=== PATIENT | female | born 1945 | race Caucasian/White ===

== ENCOUNTER 2016-12-14 09:49 | Inpatient (IN) | payer BC, OTHER ==
[~2016-12-14] VITALS: Ht 152.4 cm; Wt 61.3 kg
[2016-12-14] MEDS ORDERED: ONDANSETRON INJ 2 MG/ML 2 ML VIAL IV STA (10:19)
[2016-12-14] MEDS ORDERED: SODIUM CHLORIDE 0.9% 1000ML 1,000 ML IV SCH (10:19)
[2016-12-14 10:31] LABS: BASO % 1.8 %; COMPLETE YES; EOS % 2.7 %; IG% 0.2 %; LYMPH % 44.4 %; LYMPH ABS # 2.47 K/uL (1.2-3.4); MEAN CELL VOLUME 90.4 fL (80-100); MEAN CORPUSCULAR HEMOGLOBIN 31.5 pg (25-34); MEAN CORPUSCULAR HGB CONC 34.9 g/dl (32-36); MEAN PLATELET VOLUME 11.8 fL (7.4-10.4); MONO % 6.5 %; NEUT % 44.4 %; PLATELET COUNT 254 K/uL (130-400); RED BLOOD COUNT 4.98 M/uL (4.2-5.4); WHITE BLOOD COUNT 5.56 K/uL (4.8-10.8)
--- NOTE | 2016-12-14 10:42 | DIAGNOSTIC IMAGING REPORT ---
HEAD CT NONCONTRAST CT DOSE: 823.94 mGycm HISTORY: Mental status change Stroke TECHNIQUE: Multiaxial CT images of the head were performed without the use of intravenous contrast. Comparison: None. Findings: The paranasal sinuses and mastoid air cells are clear. There is suggestion of a slight increase in density left internal artery canals compared to the right. Artifact versus space-occupying lesion within the left internal artery canals considered. Density characteristics of the cerebellar as well as cerebral hemispheres are unremarkable. There is minimal age-related chronic small vessel change. There is no evidence for acute intracranial hemorrhage. Ventricular system is midline. Impression: 1. No acute intracranial abnormality. 2. Mild chronic small vessel change. 3. Increased density of the left internal auditory canal. MRI of the brain with attention to the internal auditory canals suggested as follow-up. Electronically signed by: Jimenez Cartwright M.D. 12/14/2016 10:41 AM Dictated Date/Time: 12/14/2016 10:37 AM
[2016-12-14 10:46] LABS: INR 0.9 (0.9-1.1); PARTIAL THROMBOPLASTIN RATIO 0.9
[2016-12-14] MEDS ORDERED: INDA1TAB3 PO (10:46)
[2016-12-14] MEDS ORDERED: CHOL1000 PO (10:46)
[2016-12-14] MEDS ORDERED: CYAN10005 PO (10:46)
[2016-12-14 10:56] LABS: BLOOD UREA NITROGEN 17 mg/dl (7-18); CREATININE 0.81 mg/dl (0.60-1.20); GLUCOSE 123 mg/dl (70-99)
[2016-12-14 10:57] LABS: BUN/CREATININE RATIO 20.5 (10-20); CALCIUM 9.9 mg/dl (8.5-10.1); CARBON DIOXIDE 31 mmol/L (21-32); CHLORIDE 105 mmol/L (98-107); POTASSIUM 3.3 mmol/L (3.5-5.1); SODIUM 141 mmol/L (136-145)
[2016-12-14 11:05] LABS: CKMB/CK RATIO 1.2 (0-3.0)
--- NOTE | 2016-12-14 11:11 | DIAGNOSTIC IMAGING REPORT ---
SINGLE VIEW CHEST CLINICAL HISTORY: Strokelike symptoms. FINDINGS: An AP, portable, upright chest radiograph is obtained. No prior studies are available for comparison at the time of dictation. The examination is degraded by portable technique and patient rotation. The heart is mildly enlarged. The pulmonary vasculature is noncongested. Nonspecific interstitial thickening is noted. There is no airspace consolidation or large pleural effusion. No pneumothorax is seen. The skeletal structures are osteopenic. The bony thorax is grossly intact. IMPRESSION: Mild cardiac enlargement with no acute cardiopulmonary abnormality. Electronically signed by: Wilian Arnett M.D. 12/14/2016 11:10 AM Dictated Date/Time: 12/14/2016 11:09 AM
[2016-12-14] MEDS ORDERED: MAGNESIUM HYDROXIDE SUSP 30 ML UDC PO PRN (11:30)
[2016-12-14] MEDS ORDERED: ALUMINUM/MAGNESIUM/SIMETH (MAALOX MAX) 30 ML UDC PO PRN (11:30)
[2016-12-14] MEDS ORDERED: ONDANSETRON INJ 2 MG/ML 2 ML VIAL IV PRN (11:30)
[2016-12-14] MEDS ORDERED: POLYETHYLENE (MIRALAX) 17 GM PACK PO PRN (11:30)
[2016-12-14] MEDS ORDERED: ACETAMINOPHEN 325 MG TAB PO PRN (11:30)
[2016-12-14] MEDS ORDERED: PHARMACIST DISCHARGE MED REC CONSULT PRN (11:30)
[2016-12-14 12:11] LABS: ESTIMATED AVERAGE GLUCOSE 108 mg/dl; HA1C FLAG Normal (Normal)
[2016-12-14 12:25] VITALS: O2SAT 100; Ht 152.4 cm; Wt 61.3 kg
[2016-12-14] MEDS ORDERED: IV FLUIDS COMPLETED PRN (12:30)
[2016-12-14 13:15] VITALS: BP 160/85; PULSE 60; TEMP 36.8; O2SAT 98
[2016-12-14] MEDS ORDERED: POTASSIUM CITRATE 10 MEQ TAB PO ONE (14:30)
--- NOTE | 2016-12-14 16:10 | DIAGNOSTIC IMAGING REPORT ---
NECK MRA HISTORY: Mental status change eval for cva TECHNIQUE: [id number] and gadolinium-enhanced MRA of the neck was performed both before and after the intravenous administration of contrast. All measurements were calculated based on NASCET criteria. COMPARISON STUDY: None. FINDINGS: The aortic arch and proximal great vessels are widely patent. There is no significant stenosis, occlusion, or dissection identified within the bilateral common carotid, internal carotid, or vertebral arteries. Mild plaque dimension is identified at the carotid bifurcations as well as distal aspects of the vertebral arteries. A significant stenotic process, however is not appreciated. IMPRESSION: No significant stenosis, occlusion, or dissection identified within the carotid or vertebral arteries. Mild scattered plaque formation. Electronically signed by: Jimenez Cartwright M.D. 12/14/2016 4:08 PM Dictated Date/Time: 12/14/2016 4:07 PM
--- NOTE | 2016-12-14 16:11 | DIAGNOSTIC IMAGING REPORT ---
Brain MRA HISTORY: Vision loss. Stroke. TECHNIQUE: 3-D [id number] MRA of the brain was performed without contrast. COMPARISON STUDY: None. FINDINGS: Visualized intracranial internal carotid arteries, distal vertebral arteries, and basilar artery are widely patent. There is no significant stenosis, occlusion, or aneurysm seen within the bilateral ACAs, MCAs, or audio visual equipment rental clerk. Hypoplastic right P1 segment. There is persistent left posterior circulation considered to be a normal variant. IMPRESSION: No significant stenosis, occlusion, or aneurysm within the [place]. Electronically signed by: Tello Gordon M.D. 12/14/2016 4:09 PM Dictated Date/Time: 12/14/2016 4:06 PM
[2016-12-14] MEDS ORDERED: GADAVIST IV PRN (16:15)
--- NOTE | 2016-12-14 16:15 | DIAGNOSTIC IMAGING REPORT ---
MRI OF THE BRAIN AND IACS WITHOUT AND WITH IV CONTRAST CLINICAL HISTORY: Visual loss, 3rd nerve palsy. Stroke symptoms. COMPARISON STUDY: CT scan dated 12/14/2016 TECHNIQUE: MRI of the brain was performed from the vertex to the skull base utilizing various T1 and T2 weighted sequences. Following the IV administration of 6 mL of Gadavist contrast, additional enhanced images were obtained. FINDINGS: Sagittal T1, axial diffusion, proton density and T2 weighted axial, coronal FLAIR, and pre and post axial T1-weighted images were acquired. These were supplemented with post gadolinium coronal T1 weighted images. No intra or extra-axial mass lesions are visualized. Axial diffusion-weighted images reveal no evidence of acute or subacute infarction. A subtle linear focus of increased signal within the right medial posterior pontine midbrain junction is likely artifactual. There is no evidence of ventricular dilatation. Proton density T2-weighted and FLAIR images reveal scattered foci of increased T2 signal within the white matter, likely on a small vessel basis. There are no abnormal flow voids. There is no evidence of pathologic enhancement. IMPRESSION: 1. No acute intracranial findings 2. No evidence of acute or subacute infarction (a subtle linear focus of increased signal on diffusion-weighted images in the right medial posterior pontine midbrain junction is likely artifactual) 3. No evidence of intracranial mass. Specifically no cerebellopontine angle masses are visualized. The 7th and 8th nerve complexes appear normal. Electronically signed by: Houston Eid M.D. 12/14/2016 4:13 PM Dictated Date/Time: 12/14/2016 4:09 PM
--- NOTE | 2016-12-14 16:40 | EMERGENCY ROOM VISIT NOTE ---
History Report prepared by Mumtazibstephanie: Dana Nguyen Under the Supervision of: Dr. Phil Chamorro M.D. First contact with patient: 10:10 Chief Complaint: EYE ASSESSMENT Stated Complaint: VISION LOSS History of Present Illness The patient is a 71 year old female who presents to the Emergency Room with complaints of persistent double vision that began around 8AM this morning. She states that her symptoms began when she woke up. She has some improvement when she covers one eye or closes her eyes. It is worse when she has both eyes open. She does not have any loss of vision. She cannot distinguish whether the two images are on top of each other or side by side. She also complains of some dizziness, nausea, and vomiting. She has been able to walk this morning, but needs something to hold onto while walking. She did not have any symptoms when she went to bed last night. She has had 4-5 episodes of benign vertigo in the past, most recently about a year ago. Her current symptoms do not feel similar to previous episodes of vertigo as she does not typically have double vision. Denies fever, headache, chest pain, shortness of breath, abdominal pain, diarrhea, trouble speaking or communicating, trouble swallowing, or other complaints. She does not have a history of diabetes, stroke, or mini-stroke. She is not on aspirin. Past medical history includes hypertension. Source of History: patient Onset: 8AM this morning Position: other (vision) Quality: other (double vision) Timing: other (persistent) Modifying Factors (Worsening): other (opening both eyes) Modifying Factors (Relieving): other (closing one or both eyes) Associated Symptoms: + nausea, + vomiting, No SOB, No abdominal pain, No chest pain, No diarrhea, No fevers, No headache Note: Other symptoms: dizziness Review of Systems See HPI for pertinent positives & negatives. A total of 10 systems reviewed and were otherwise negative. Past Medical & Surgical Medical Problems: (1) Diplopia (2) Hypertension (3) Vertigo Family History No pertinent family history stated. Social History Smoking Status: Never Smoker Marital Status: Housing Status: lives with significant other Occupation Status: retired Current/Historical Medications Scheduled Cholecalciferol (Vitamin D3), 1 TAB PO DAILY Cyanocobalamin (Vitamin B-12), 1,000 MCG PO 3XWK Indapamide (Lozol), 1.25 MG PO DAILY Allergies Coded Allergies: No Known Allergies (Unverified , 12/14/16) Physical Exam Vital Signs Date Time Temp Pulse Resp B/P Pulse Ox O2 Delivery O2 Flow Rate FiO2 12/14/16 12:25 100 Room Air 12/14/16 11:47 64 19 148/76 100 Room Air 12/14/16 11:11 52 12 147/76 98 Room Air 12/14/16 11:10 100 Room Air 12/14/16 10:45 58 17 159/84 98 Room Air 12/14/16 10:42 60 12/14/16 09:58 36.5 58 18 179/95 98 Room Air Physical Exam Constitutional: Vital signs reviewed. Eyes: Pupils are equal round reactive to light. Conjunctiva are noninjected. ENT: Pharynx is clear without erythema or exudate. Mucous membranes are moist. Neck supple without meningeal signs. Respiratory: Clear to auscultation bilaterally. Breath sounds are equal bilaterally. Cardiovascular: Regular rate and rhythm. No rubs or gallops. GI: Soft, nondistended and nontender. Bowel sounds are present. Musculoskeletal: No peripheral edema. No lower extremity tenderness. Integumentary: No cyanosis. Neurological: The patient is awake and alert. Cranial nerves II-XII are intact except for the right third nerve. Motor is 5 out of 5 all extremities. Sensation is intact to light touch all extremities. Normal speech. No pronator drift. No dysdiadochokinesis. No limb ataxia. Psychiatric: Slightly anxious. Medical Decision & Procedures ER Provider Diagnostic Interpretation: Radiology results as stated below per my review and the radiologist's interpretation: HEAD CT NONCONTRAST CT DOSE: 823.94 mGycm HISTORY: Mental status change Stroke TECHNIQUE: Multiaxial CT images of the head were performed without the use of intravenous contrast. Comparison: None. Findings: The paranasal sinuses and mastoid air cells are clear. There is suggestion of a slight increase in density left internal artery canals compared to the right. Artifact versus space-occupying lesion within the left internal artery canals considered. Density characteristics of the cerebellar as well as cerebral hemispheres are unremarkable. There is minimal age-related chronic small vessel change. There is no evidence for acute intracranial hemorrhage. Ventricular system is midline. Impression: 1. No acute intracranial abnormality. 2. Mild chronic small vessel change. 3. Increased density of the left internal auditory canal. MRI of the brain with attention to the internal auditory canals suggested as follow-up. Electronically signed by: Jimenez Cartwright M.D. 12/14/2016 10:41 AM Dictated Date/Time: 12/14/2016 10:37 AM SINGLE VIEW CHEST CLINICAL HISTORY: Strokelike symptoms. FINDINGS: An AP, portable, upright chest radiograph is obtained. No prior studies are available for comparison at the time of dictation. The examination is degraded by portable technique and patient rotation. The heart is mildly enlarged. The pulmonary vasculature is noncongested. Nonspecific interstitial thickening is noted. There is no airspace consolidation or large pleural effusion. No pneumothorax is seen. The skeletal structures are osteopenic. The bony thorax is grossly intact. IMPRESSION: Mild cardiac enlargement with no acute cardiopulmonary abnormality. Electronically signed by: Wilian Arnett M.D. 12/14/2016 11:10 AM Dictated Date/Time: 12/14/2016 11:09 AM Laboratory Results 12/14/16 10:10 Red Blood Count 4.98, Mean Corpuscular Volume 90.4, Mean Corpuscular Hemoglobin 31.5, Mean Corpuscular Hemoglobin Concent 34.9, Mean Platelet Volume 11.8, Neutrophils (%) (Auto) 44.4, Lymphocytes (%) (Auto) 44.4, Monocytes (%) (Auto) 6.5, Eosinophils (%) (Auto) 2.7, Basophils (%) (Auto) 1.8, Neutrophils # (Auto) 2.47, Lymphocytes # (Auto) 2.47, Monocytes # (Auto) 0.36, Eosinophils # (Auto) 0.15, Basophils # (Auto) 0.10 12/14/16 10:10 Test 12/14/16 10:10 White Blood Count 5.56 K/uL (4.8-10.8) Red Blood Count 4.98 M/uL (4.2-5.4) Hemoglobin 15.7 g/dL (12.0-16.0) Hematocrit 45.0 % (37-47) Mean Corpuscular Volume 90.4 fL (80-100) Mean Corpuscular Hemoglobin 31.5 pg (25-34) Mean Corpuscular Hemoglobin Concent 34.9 g/dl (32-36) Platelet Count 254 K/uL (130-400) Mean Platelet Volume 11.8 fL (7.4-10.4) Neutrophils (%) (Auto) 44.4 % Lymphocytes (%) (Auto) 44.4 % Monocytes (%) (Auto) 6.5 % Eosinophils (%) (Auto) 2.7 % Basophils (%) (Auto) 1.8 % Neutrophils # (Auto) 2.47 K/uL (1.4-6.5) Lymphocytes # (Auto) 2.47 K/uL (1.2-3.4) Monocytes # (Auto) 0.36 K/uL (0.11-0.59) Eosinophils # (Auto) 0.15 K/uL (0-0.5) Basophils # (Auto) 0.10 K/uL (0-0.2) RDW Standard Deviation 43.6 fL (36.4-46.3) RDW Coefficient of Variation 13.2 % (11.5-14.5) Immature Granulocyte % (Auto) 0.2 % Immature Granulocyte # (Auto) 0.01 K/uL (0.00-0.02) Prothrombin Time 10.0 SECONDS (9.0-12.0) Prothromb Time International Ratio 0.9 (0.9-1.1) Activated Partial Thromboplast Time 23.9 SECONDS (21.0-31.0) Partial Thromboplastin Ratio 0.9 Anion Gap 5.0 mmol/L (3-11) Est Creatinine Clear Calc Drug Dose 51.9 ml/min Estimated GFR () 84.1 Estimated GFR (Non- 72.6 BUN/Creatinine Ratio 20.5 (10-20) Estimated Average Glucose 108 mg/dl Hemoglobin A1c 5.4 % (4.5-5.6) Calcium Level 9.9 mg/dl (8.5-10.1) Total Creatine Kinase 50 U/L (26-192) Creatine Kinase MB 0.6 ng/ml (0.5-3.6) Creatine Kinase MB Ratio 1.2 (0-3.0) Troponin I < 0.015 ng/ml (0-0.045) Laboratory results as reviewed by me. Medications Administered Medications (Trade) Dose Ordered Sig/Ayla Route Start Time Stop Time Status Last Admin Dose Admin Sodium Chloride (Nss 1000ml) 1,000 ml @ 50 mls/hr Q20H IV 12/14/16 10:19 12/14/16 13:40 DC 12/14/16 11:04 50 MLS/HR Ondansetron HCl (Zofran Inj) 4 mg NOW STAT IV 12/14/16 10:19 12/14/16 10:21 DC 12/14/16 11:04 4 MG ECG Indication: other (stroke symptoms) Rate (beats per minute): 58 Rhythm: sinus bradycardia Findings: no ectopy, other (baseline artifact limiting interpretation, no ST elevation) ED Course 1010: The patient was evaluated in room A3. A complete history and physical exam was performed. 1019: Ordered Zofran Inj 4 mg IV, NSS 1000 ml @ 50 mls/hr IV. 1109: I reassessed the patient. She said that she feels fine as long as she does not open her eyes. 1114: I discussed the case with Dr. Villarreal, [facility] [place] Hospitalist. The patient will be evaluated for further management. Medical Decision This is a 71-year-old female presents with double vision. Differential diagnosis includes CVA, TIA, intracranial mass, intracranial hemorrhage, cranial nerve palsy. I did perform a limited focused review of portions of the patient's old chart on the electronic medical record. The patient has had no recent pertinent visits to this hospital. I did evaluate the patient as noted above. She is presenting with diplopia starting this morning. She has a 3rd nerve palsy on the right side. She is only able to abduct the right eye. She otherwise has no other cranial nerve deficits or focal deficits in the extremities. IV access was established. The patient was placed on a continuous cardiac exercise physiologist. I did order and personally review the patient's 12-lead EKG and chest x-ray as described above. I did order and review the patient's blood work as noted in the electronic medical record. I did order a CT of the head. I did review the images myself as well as the radiology report as described above. There is no evidence of acute stroke. I did treat the patient with Zofran IV. I did reassess the patient. She continues to have a third nerve palsy. I did recommend hospitalization for further evaluation as well as MRI and MRA of the head and neck. I did order the MRI and MRAs. I did discuss the case with the hospitalist and outpatient case manager for further evaluation. Consults Time Called: [phone] Consulting Physician: Dr. Villarreal [facility] [place] Hospitalist Returned Call: [phone] I discussed the case with him. The patient will be evaluated for further management. Impression Primary Impression: Third cranial nerve palsy Scribe Attestation The scribe's documentation has been prepared under my direct and personally reviewed by me in its entirety. I confirm that the note above accurately reflects all work, treatment, procedures, and medical decision making performed by me. Departure Information Dispostion Being Evaluated By Hospitalist Referrals Parvez Lopes M.D. (PCP) Patient Instructions My [facility] Problem Qualifiers Primary Impression: Third cranial nerve palsy Laterality: unspecified laterality Qualified Codes: H49.00 - Third [ oculomotor] nerve palsy, unspecified eye
[2016-12-14 17:28] VITALS: BP 175/96; PULSE 58; TEMP 36.6; O2SAT 100
--- NOTE | 2016-12-14 17:59 | History and Physical ---
History & Physical Date & Time of Service: Dec 14, 2016 at 17:41 Chief Complaint: Diplopia Primary Care Physician: Parvez Lopes M.D. History of Present Illness Source: patient This is a 71 yo f that is presenting to us with changes suspicious of a TIA. The patient awoke this morning at 0800 with sudden diplopia and according to the there was some facial drooping but has since resolved. The patient states that the left eye has no blurry vision however she does note it in the right eye. She notices that the images are side by side and feels better with her eyes closed. She has some mild nausea and dizziness accompanied by it but not vertigo and she has no vomited. She denies any headache, chest pain or SOB. Non smoker and drinks a drink a week. Her mother has had multiple strokes and [place]. She only has a history of HTN. Past Medical/Surgical History Medical Problems: (1) Hypertension Status: Chronic (2) Vertigo Status: Resolved Family History FH: Parkinson's disease FATHER FH: myocardial infarction MOTHER Stroke MOTHER Social History Smoking Status: Never Smoker Smokeless Tobacco Use: No Alcohol Use: occasionally Drug Use: none Marital Status: Housing status: lives with family Occupational Status: retired Multi-Drug Resistant Organisms History of MDRO: No Allergies Coded Allergies: No Known Allergies (Unverified , 12/14/16) Home Medications Scheduled Cholecalciferol (Vitamin D3), 1 TAB PO DAILY Cyanocobalamin (Vitamin B-12), 1,000 MCG PO 3XWK Indapamide (Lozol), 1.25 MG PO DAILY Review of Systems Constitutional: No fever Eyes: + diplopia, + worsening of vision ENT: No hearing loss Respiratory: No cough, No dyspnea at rest, No dyspnea on exertion, No shortness of breath, No sputum, No wheezing Cardiovascular: No chest pain Abdomen: No constipation, No diarrhea, No nausea, No pain, No vomiting Musculoskeletal: No joint pain, No muscle pain Genitourinary - Female: No dysuria, No hematuria Neurologic: No balance problems, No numbness/tingling, No paralysis, No weakness Psychiatric: + anxiety Endocrine: No fatigue Integumentary: No rash Physical Exam Vital Signs Date Time Temp Pulse Resp B/P Pulse Ox O2 Delivery O2 Flow Rate FiO2 12/14/16 17:28 36.6 58 20 175/96 100 Room Air 12/14/16 13:15 36.8 60 16 160/85 98 Room Air 12/14/16 12:50 55 17 167/77 98 Room Air 12/14/16 12:25 100 Room Air 12/14/16 11:47 64 19 148/76 100 Room Air 12/14/16 11:11 52 12 147/76 98 Room Air 12/14/16 11:10 100 Room Air 12/14/16 10:45 58 17 159/84 98 Room Air 12/14/16 10:42 60 12/14/16 09:58 36.5 58 18 179/95 98 Room Air General Appearance: WD/WN, no apparent distress Head: normocephalic, atraumatic Eyes: PERRL, + pertinent finding (findings suggestive of LR palsy) ENT: normal ENT inspection Neck: supple Respiratory/Chest: normal breath sounds, no respiratory distress, no accessory muscle use, + decreased breath sounds (bilat bases) Cardiovascular: regular rate, rhythm, no murmur Abdomen/GI: normal bowel sounds, non tender, soft Back: normal inspection Extremities/Musculoskelatal: normal inspection, no calf tenderness, no pedal edema Neurologic/Psych: alert, normal mood/affect, oriented x 3 Skin: normal color, warm/dry, no rash Lymphatic: no adenopathy Diagnostics Laboratory Results Results Past 24 Hours Test 12/14/16 10:10 Range/Units White Blood Count 5.56 4.8-10.8 K/uL Red Blood Count 4.98 4.2-5.4 M/uL Hemoglobin 15.7 12.0-16.0 g/dL Hematocrit 45.0 37-47 % Mean Corpuscular Volume 90.4 80-100 fL Mean Corpuscular Hemoglobin 31.5 25-34 pg Mean Corpuscular Hemoglobin Concent 34.9 32-36 g/dl Platelet Count 254 130-400 K/uL Mean Platelet Volume 11.8 7.4-10.4 fL Neutrophils (%) (Auto) 44.4 % Lymphocytes (%) (Auto) 44.4 % Monocytes (%) (Auto) 6.5 % Eosinophils (%) (Auto) 2.7 % Basophils (%) (Auto) 1.8 % Neutrophils # (Auto) 2.47 1.4-6.5 K/uL Lymphocytes # (Auto) 2.47 1.2-3.4 K/uL Monocytes # (Auto) 0.36 0.11-0.59 K/uL Eosinophils # (Auto) 0.15 0-0.5 K/uL Basophils # (Auto) 0.10 0-0.2 K/uL RDW Standard Deviation 43.6 36.4-46.3 fL RDW Coefficient of Variation 13.2 11.5-14.5 % Immature Granulocyte % (Auto) 0.2 % Immature Granulocyte # (Auto) 0.01 0.00-0.02 K/uL Prothrombin Time 10.0 9.0-12.0 SECONDS Prothromb Time International Ratio 0.9 0.9-1.1 Activated Partial Thromboplast Time 23.9 21.0-31.0 SECONDS Partial Thromboplastin Ratio 0.9 Sodium Level 141 136-145 mmol/L Potassium Level 3.3 3.5-5.1 mmol/L Chloride Level 105 98-107 mmol/L Carbon Dioxide Level 31 21-32 mmol/L Anion Gap 5.0 3-11 mmol/L Blood Urea Nitrogen 17 7-18 mg/dl Creatinine 0.81 0.60-1.20 mg/dl Est Creatinine Clear Calc Drug Dose 51.9 ml/min Estimated GFR () 84.1 Estimated GFR (Non- 72.6 BUN/Creatinine Ratio 20.5 10-20 Random Glucose 123 70-99 mg/dl Estimated Average Glucose 108 mg/dl Hemoglobin A1c 5.4 4.5-5.6 % Calcium Level 9.9 8.5-10.1 mg/dl Total Creatine Kinase 50 26-192 U/L Creatine Kinase MB 0.6 0.5-3.6 ng/ml Creatine Kinase MB Ratio 1.2 0-3.0 Troponin I < 0.015 0-0.045 ng/ml Diagnostic Radiology MRI OF THE BRAIN AND IACS WITHOUT AND WITH IV CONTRAST CLINICAL HISTORY: Visual loss, 3rd nerve palsy. Stroke symptoms. COMPARISON STUDY: CT scan dated 12/14/2016 TECHNIQUE: MRI of the brain was performed from the vertex to the skull base utilizing various T1 and T2 weighted sequences. Following the IV administration of 6 mL of Gadavist contrast, additional enhanced images were obtained. FINDINGS: Sagittal T1, axial diffusion, proton density and T2 weighted axial, coronal FLAIR, and pre and post axial T1-weighted images were acquired. These were supplemented with post gadolinium coronal T1 weighted images. No intra or extra-axial mass lesions are visualized. Axial diffusion-weighted images reveal no evidence of acute or subacute infarction. A subtle linear focus of increased signal within the right medial posterior pontine midbrain junction is likely artifactual. There is no evidence of ventricular dilatation. Proton density T2-weighted and FLAIR images reveal scattered foci of increased T2 signal within the white matter, likely on a small vessel basis. There are no abnormal flow voids. There is no evidence of pathologic enhancement. IMPRESSION: 1. No acute intracranial findings 2. No evidence of acute or subacute infarction (a subtle linear focus of increased signal on diffusion-weighted images in the right medial posterior pontine midbrain junction is likely artifactual) 3. No evidence of intracranial mass. Specifically no cerebellopontine angle masses are visualized. The 7th and 8th nerve complexes appear normal. Brain MRA HISTORY: Vision loss. Stroke. TECHNIQUE: 3-D [id number] MRA of the brain was performed without contrast. COMPARISON STUDY: None. FINDINGS: Visualized intracranial internal carotid arteries, distal vertebral arteries, and basilar artery are widely patent. There is no significant stenosis, occlusion, or aneurysm seen within the bilateral ACAs, MCAs, or oracle distribution consultant. Hypoplastic right P1 segment. There is persistent left posterior circulation considered to be a normal variant. IMPRESSION: No significant stenosis, occlusion, or aneurysm within the [place]. NECK MRA HISTORY: Mental status change eval for cva TECHNIQUE: [id number] and gadolinium-enhanced MRA of the neck was performed both before and after the intravenous administration of contrast. All measurements were calculated based on NASCET criteria. COMPARISON STUDY: None. FINDINGS: The aortic arch and proximal great vessels are widely patent. There is no significant stenosis, occlusion, or dissection identified within the bilateral common carotid, internal carotid, or vertebral arteries. Mild plaque dimension is identified at the carotid bifurcations as well as distal aspects of the vertebral arteries. A significant stenotic process, however is not appreciated. IMPRESSION: No significant stenosis, occlusion, or dissection identified within the carotid or vertebral arteries. Mild scattered plaque formation. [~ rep ct add3]] SINGLE VIEW CHEST CLINICAL HISTORY: Strokelike symptoms. FINDINGS: An AP, portable, upright chest radiograph is obtained. No prior studies are available for comparison at the time of dictation. The examination is degraded by portable technique and patient rotation. The heart is mildly enlarged. The pulmonary vasculature is noncongested. Nonspecific interstitial thickening is noted. There is no airspace consolidation or large pleural effusion. No pneumothorax is seen. The skeletal structures are osteopenic. The bony thorax is grossly intact. IMPRESSION: Mild cardiac enlargement with no acute cardiopulmonary abnormality. [~ rep ct add3]] HEAD CT NONCONTRAST CT DOSE: 823.94 mGycm HISTORY: Mental status change Stroke TECHNIQUE: Multiaxial CT images of the head were performed without the use of intravenous contrast. Comparison: None. Findings: The paranasal sinuses and mastoid air cells are clear. There is suggestion of a slight increase in density left internal artery canals compared to the right. Artifact versus space-occupying lesion within the left internal artery canals considered. Density characteristics of the cerebellar as well as cerebral hemispheres are unremarkable. There is minimal age-related chronic small vessel change. There is no evidence for acute intracranial hemorrhage. Ventricular system is midline. Impression: 1. No acute intracranial abnormality. 2. Mild chronic small vessel change. 3. Increased density of the left internal auditory canal. MRI of the brain with attention to the internal auditory canals suggested as follow-up. EKG bpm 58 QTc [address] abnormality Abnormal ECG No previous ECGs available Impression Assessment and Plan This is a 71 yo f with most likely CN palsy that is concerning for a TIA as the patient also presented with facial drooping. No acute changes on MRI indicating that there was a stroke. If there is improvement with symptoms the patient most like suffered from a TIA, if not patient most likely has a palsy of unknown etiology. CN palsy secondary to a TIA vs idiopathic - Tele admission - MRI and MRA- no acute changes indicating stroke, no stenosis/ aneurysm - Echo pending - Lipid panel in am - HBA1C 5.4 - Consider additionally adding ASA 81 mg - Statin based on lipid results - if symptoms do not improve by tomorrow consider a neuro consult - neuro check q 4 HTN - for now will hole the indapamide and restart in am - most likely the cause of the hypokalemia Hypokalemia - replete as needed - recheck BMP in the am DVT Prophylaxis - heparin FULL CODE Resident Physician Supervision Note: I interviewed and examined the patient. Discussed with Dr. Joy and agree with findings and plan as documented in the note. Any exceptions or clarifications are listed here: None Documented By: Andrew Gore double vision eye restricted in medial gaze vitals noted, chart reviewed no other focal deficits but describes rather compellingly a facial droop double vision/6th nerve palsy - with concomitant facial droop have to eval as ? TIA - no stroke on MRI. asa, statin, echo. carotids clear. since facial droop better if double vision doesn't resolve by AM (making 24hrs since onset) will ask neuro for eval -patch eye for comfort for now patch bad eye, if ongoing palsy may need to patch good eye some too otherwise as above Level of Care Telemetry Advanced Directives Existing Living Will: Yes Existing Power of Pet Care Worker: Yes Resuscitation Status FULL RESUSCITATION VTE Prophylaxis VTE Risk Assessment Done? Y/N: Yes Risk Level: Moderate Given or contraindicated: Unfractionated heparin SQ Social Service Consult None Apply Note Total Time: Critical Care 30 - 74 minutes Additional Copies To Parvez Lopes M.D.
[2016-12-14 19:01] VITALS: BP 166/90; PULSE 55; TEMP 36.8; O2SAT 94
--- NOTE | 2016-12-14 19:35 | Medical Student: [facility] ---
Med Student History & Physical Date & Time of Service: Dec 14, 2016 at 18:53 Chief Complaint: Double vision Primary Care Physician: Parvez Lopes M.D. History of Present Illness Source: patient Mrs. Boykin is a 71 year old female with past medical history significant for hypertension and vertigo who presented to the ED this morning for double vision. Patient states first noticed diplopia when woke up this AM. Notes images are side by side. States no symptoms when she keeps left eye closed. Notes inability to focus correctly if she opens left eye and keeps right eye closed. Symptoms have stayed constant since this morning. She notes associated nausea and dizziness with movement and if both eyes open. Reports noted significant facial drooping when she woke up as well which has since resolved. Reports this has never happened before. States she is nearsighted and has worn glasses since childhood. Denies recent illness. Notes some increased stress as is scheduled for cardiac surgery in [place] this week. Denies history of stroke or TIA. Notes one hospitalization 5 years ago where she was under a great deal of stress and subsequently fainted and was incontinent of urine. States hospitalized for five days with no diagnosis of cause of syncopal episode. Denies eye pain, headache, dysphagia, aphasia, weakness, confusion, numbness/tingling/burning. 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 (2) Hypertension Status: Chronic (3) Vertigo Status: Chronic Family History Father: pertinent history of (Parkinson's Disease) Mother: heart disease (myocardial infarction), stroke Social History Smoking Status: Never Smoker Smokeless Tobacco Use: No Alcohol Use: occasionally (1 glass of wine x5 days a week) Drug Use: none Marital Status: Housing status: lives with family Occupational Status: retired (Program Specialist) Allergies Coded Allergies: No Known Allergies (Unverified , 12/14/16) Medications Cholecalciferol (Vitamin D3), 1 TAB PO DAILY Cyanocobalamin (Vitamin B-12), 1,000 MCG PO 3XWK Indapamide (Lozol), 1.25 MG PO DAILY Review of Systems Constitutional: No chills, No fever, No sweats, No weight loss Eyes: + diplopia, No eye pain, No redness ENT: No trouble swallowing Respiratory: No cough, No shortness of breath, No wheezing Cardiovascular: No chest pain, No edema, No palpitations Abdomen: + nausea, No diarrhea, No pain, No vomiting Musculoskeletal: No calf pain, No swelling Genitourinary - Female: No dysuria, No urinary frequency, No urinary urgency Neurologic: No numbness/tingling, No paralysis, No vertigo, No weakness Hematologic / Lymphatic: No abnormal bleeding/bruising Physical Exam Vital Signs (24 Hours) Date Time Temp Pulse Resp B/P Pulse Ox O2 Delivery O2 Flow Rate FiO2 12/14/16 17:28 36.6 58 20 175/96 100 Room Air 12/14/16 16:00 Room Air 12/14/16 13:15 36.8 60 16 160/85 98 Room Air 12/14/16 12:50 55 17 167/77 98 Room Air 12/14/16 12:25 100 Room Air 12/14/16 11:47 64 19 148/76 100 Room Air 12/14/16 11:11 52 12 147/76 98 Room Air 12/14/16 11:10 100 Room Air 12/14/16 10:45 58 17 159/84 98 Room Air 12/14/16 10:42 60 12/14/16 09:58 36.5 58 18 179/95 98 Room Air General Appearance: WD/WN, + mild distress, + thin Head: normocephalic, atraumatic Eyes: normal inspection, PERRL ENT: normal ENT inspection, hearing grossly normal Neck: supple, no adenopathy, thyroid normal, no JVD, no carotid bruits Respiratory/Chest: chest non-tender, lungs clear, normal breath sounds, no respiratory distress, no accessory muscle use Cardiovascular: regular rate, rhythm, no edema, no gallop, no JVD, no murmur, normal peripheral pulses Abdomen/GI: normal bowel sounds, non tender, soft, no organomegaly Extremities/Musculoskelatal: no calf tenderness, no pedal edema Neurologic/Psych: no motor/sensory deficits, alert, normal mood/affect, normal reflexes, oriented x 3, + abnormal cps team lead II-XII (CN III extraocular movements not intact in right eye) Skin: normal color, warm/dry Diagnostics Laboratory Results Results Past 24 Hours Test 12/14/16 10:10 Range/Units White Blood Count 5.56 4.8-10.8 K/uL Red Blood Count 4.98 4.2-5.4 M/uL Hemoglobin 15.7 12.0-16.0 g/dL Hematocrit 45.0 37-47 % Mean Corpuscular Volume 90.4 80-100 fL Mean Corpuscular Hemoglobin 31.5 25-34 pg Mean Corpuscular Hemoglobin Concent 34.9 32-36 g/dl Platelet Count 254 130-400 K/uL Mean Platelet Volume 11.8 7.4-10.4 fL Neutrophils (%) (Auto) 44.4 % Lymphocytes (%) (Auto) 44.4 % Monocytes (%) (Auto) 6.5 % Eosinophils (%) (Auto) 2.7 % Basophils (%) (Auto) 1.8 % Neutrophils # (Auto) 2.47 1.4-6.5 K/uL Lymphocytes # (Auto) 2.47 1.2-3.4 K/uL Monocytes # (Auto) 0.36 0.11-0.59 K/uL Eosinophils # (Auto) 0.15 0-0.5 K/uL Basophils # (Auto) 0.10 0-0.2 K/uL RDW Standard Deviation 43.6 36.4-46.3 fL RDW Coefficient of Variation 13.2 11.5-14.5 % Immature Granulocyte % (Auto) 0.2 % Immature Granulocyte # (Auto) 0.01 0.00-0.02 K/uL Prothrombin Time 10.0 9.0-12.0 SECONDS Prothromb Time International Ratio 0.9 0.9-1.1 Activated Partial Thromboplast Time 23.9 21.0-31.0 SECONDS Partial Thromboplastin Ratio 0.9 Sodium Level 141 136-145 mmol/L Potassium Level 3.3 3.5-5.1 mmol/L Chloride Level 105 98-107 mmol/L Carbon Dioxide Level 31 21-32 mmol/L Anion Gap 5.0 3-11 mmol/L Blood Urea Nitrogen 17 7-18 mg/dl Creatinine 0.81 0.60-1.20 mg/dl Est Creatinine Clear Calc Drug Dose 51.9 ml/min Estimated GFR () 84.1 Estimated GFR (Non- 72.6 BUN/Creatinine Ratio 20.5 10-20 Random Glucose 123 70-99 mg/dl Estimated Average Glucose 108 mg/dl Hemoglobin A1c 5.4 4.5-5.6 % Calcium Level 9.9 8.5-10.1 mg/dl Total Creatine Kinase 50 26-192 U/L Creatine Kinase MB 0.6 0.5-3.6 ng/ml Creatine Kinase MB Ratio 1.2 0-3.0 Troponin I < 0.015 0-0.045 ng/ml Diagnostic Radiology HEAD CT NONCONTRAST CT DOSE: 823.94 mGycm HISTORY: Mental status change Stroke TECHNIQUE: Multiaxial CT images of the head were performed without the use of intravenous contrast. Comparison: None. Findings: The paranasal sinuses and mastoid air cells are clear. There is suggestion of a slight increase in density left internal artery canals compared to the right. Artifact versus space-occupying lesion within the left internal artery canals considered. Density characteristics of the cerebellar as well as cerebral hemispheres are unremarkable. There is minimal age-related chronic small vessel change. There is no evidence for acute intracranial hemorrhage. Ventricular system is midline. Impression: 1. No acute intracranial abnormality. 2. Mild chronic small vessel change. 3. Increased density of the left internal auditory canal. MRI of the brain with attention to the internal auditory canals suggested as follow-up. SINGLE VIEW CHEST CLINICAL HISTORY: Strokelike symptoms. FINDINGS: An AP, portable, upright chest radiograph is obtained. No prior studies are available for comparison at the time of dictation. The examination is degraded by portable technique and patient rotation. The heart is mildly enlarged. The pulmonary vasculature is noncongested. Nonspecific interstitial thickening is noted. There is no airspace consolidation or large pleural effusion. No pneumothorax is seen. The skeletal structures are osteopenic. The bony thorax is grossly intact. IMPRESSION: Mild cardiac enlargement with no acute cardiopulmonary abnormality. NECK MRA HISTORY: Mental status change eval for cva TECHNIQUE: [id number] and gadolinium-enhanced MRA of the neck was performed both before and after the intravenous administration of contrast. All measurements were calculated based on NASCET criteria. COMPARISON STUDY: None. FINDINGS: The aortic arch and proximal great vessels are widely patent. There is no significant stenosis, occlusion, or dissection identified within the bilateral common carotid, internal carotid, or vertebral arteries. Mild plaque dimension is identified at the carotid bifurcations as well as distal aspects of the vertebral arteries. A significant stenotic process, however is not appreciated. IMPRESSION: No significant stenosis, occlusion, or dissection identified within the carotid or vertebral arteries. Mild scattered plaque formation. Brain MRA HISTORY: Vision loss. Stroke. TECHNIQUE: 3-D [id number] MRA of the brain was performed without contrast. COMPARISON STUDY: None. FINDINGS: Visualized intracranial internal carotid arteries, distal vertebral arteries, and basilar artery are widely patent. There is no significant stenosis, occlusion, or aneurysm seen within the bilateral ACAs, MCAs, or community advocate. Hypoplastic right P1 segment. There is persistent left posterior circulation considered to be a normal variant. IMPRESSION: No significant stenosis, occlusion, or aneurysm within the [place]. MRI OF THE BRAIN AND IACS WITHOUT AND WITH IV CONTRAST CLINICAL HISTORY: Visual loss, 3rd nerve palsy. Stroke symptoms. COMPARISON STUDY: CT scan dated 12/14/2016 TECHNIQUE: MRI of the brain was performed from the vertex to the skull base utilizing various T1 and T2 weighted sequences. Following the IV administration of 6 mL of Gadavist contrast, additional enhanced images were obtained. FINDINGS: Sagittal T1, axial diffusion, proton density and T2 weighted axial, coronal FLAIR, and pre and post axial T1-weighted images were acquired. These were supplemented with post gadolinium coronal T1 weighted images. No intra or extra-axial mass lesions are visualized. Axial diffusion-weighted images reveal no evidence of acute or subacute infarction. A subtle linear focus of increased signal within the right medial posterior pontine midbrain junction is likely artifactual. There is no evidence of ventricular dilatation. Proton density T2-weighted and FLAIR images reveal scattered foci of increased T2 signal within the white matter, likely on a small vessel basis. There are no abnormal flow voids. There is no evidence of pathologic enhancement. IMPRESSION: 1. No acute intracranial findings 2. No evidence of acute or subacute infarction (a subtle linear focus of increased signal on diffusion-weighted images in the right medial posterior pontine midbrain junction is likely artifactual) 3. No evidence of intracranial mass. Specifically no cerebellopontine angle masses are visualized. The 7th and 8th nerve complexes appear normal. CXR normal, other (No acute intracranial processes) EKG Sinus bradycardia, non specific ST abnormalities No prior EKG available Impression Assessment and Plan Mrs. Boykin is a 71 year old female with past medical history significant for HTN and vertigo who presented to ED this morning for diplopia. 1. Diplopia - Likely due to TIA. Patient has family history of stroke and heart disease. Brain CT and MRI did not reveal acute intracranial processes making stroke less likely however not ruled out. TIA likely due to atherosclerotic changes in brain vessels. Neck MRA did not reveal stenosis or occlusion vessels, making thrombosis from carotid arteries less likely. Patient does not have history of afib thus less likely due to embolic etiology, though would consider echo to further rule out. Patient denied headache making atypical migraine less likely. - Order echo - Order lipid panel - Consult speech therapy and neurology - Consider beginning aspirin 81 mg - Consider beginning statin based on lipid levels and patient decision 2. Hypertension - Blood pressure stable in 160s/70. Would not consider antihypertensive therapy at this time. Would hold Indapamide for now. - If blood pressure rises >220 systolic or >120 diastolic would consider either IV labetalol, nicardipine, nitroprusside 3. Hyperkalemia - Patient's level is 3.3. Likely due to diuretic. - Consider 40 mEq potassium PO - Continue to follow and replete as needed 4. DVT prophylaxis - Begin heparin 5000 units subq q12 hours - Monitor platelets Level of Care Telemetry Advanced Directives Existing Living Will: Yes Existing Power of Box Printer: Yes DVT Prophylaxis unfractionated heparin SQ
[2016-12-14 20:09] VITALS: O2SAT 94
[2016-12-14] MEDS: HEPARIN SOD 5000 UNIT/0.5 ML CARP SQ SCH (21:24)
[2016-12-15] VITALS (7 sets, daily range): BP systolic 137–151; BP diastolic 66–78; PULSE 50–67; TEMP 36.6–36.9; O2SAT 95–98
[2016-12-15 07:04] LABS: BASO ABS # 0.05 K/uL (0-0.2); COMPLETE YES; EOS % 2.7 %; HEMATOCRIT 41.4 % (37-47); IG% 0.2 %; LYMPH % 40.3 %; LYMPH ABS # 1.95 K/uL (1.2-3.4); MEAN CELL VOLUME 90.4 fL (80-100); MEAN CORPUSCULAR HEMOGLOBIN 30.8 pg (25-34); MEAN CORPUSCULAR HGB CONC 34.1 g/dl (32-36); MEAN PLATELET VOLUME 11.8 fL (7.4-10.4); NEUT % 48.8 %; PLATELET COUNT 234 K/uL (130-400); RED BLOOD COUNT 4.58 M/uL (4.2-5.4); WHITE BLOOD COUNT 4.84 K/uL (4.8-10.8)
[2016-12-15 07:30] LABS: BUN/CREATININE RATIO 18.4 (10-20); CALCIUM 9.2 mg/dl (8.5-10.1); CREATININE 0.7 mg/dl (0.60-1.20); POTASSIUM 3.6 mmol/L (3.5-5.1)
[2016-12-15 07:33] LABS: CHOLESTEROL/HDL RATIO 2.3
[2016-12-15] MEDS: HEPARIN SOD 5000 UNIT/0.5 ML CARP SQ SCH (08:55)
[2016-12-15] MEDS ORDERED: CYANOCOBALAMIN 500 MCG TAB (VIT B-12) PO SCH (09:00)
[2016-12-15] MEDS ORDERED: CHOLECALCIFEROL 1000 INTER.UNIT TAB PO SCH (09:00)
--- NOTE | 2016-12-15 09:21 | ECHOCARDIOGRAM REPORT ---
*NOTICE TO RECEIVING DEMOCRAT AGENCY This information is strictly Confidential and protected under [place] law. [place] law prohibits you from making any further disclosure of this information unless further disclosure is expressly permitted by the written consent of the person to whom it pertains or is authorized by law. A general authorization for the release of medical or other information is not sufficient for this purpose. Hospital accepts no responsibility if the information is made available to any other person, INCLUDING THE PATIENT. Interpretation Summary * Name: SUNIL RAYMUNDO Study Date: 12/15/2016 06:16 AM BP: 137/73 mmHg * Patient Location: .2E\S\E201\S\1 HR: 50 * : 1945 (M/d/yyyy) Gender: Female Height: 60 in * Age: 71 yrs Ethnicity: [place] Weight: 138 lb * Ordering Physician: Isabelle Joy * Referring Physician: Self, Referred * Performed By: Radha Og RDCS * * Reason For Study: POSSIBLE TIA VS STROKE * BSA: 1.6 m2 * History: POSSIBLE TIA VS STROKE * -- Conclusions -- * 1. Normal left ventricular size and systolic function. EF 60-65%. No regional wall motion abnormalities. No left ventricular hypertrophy. Type 2 diastolic dysfunction. * 2. No significant valvular abnormalities. * 3. No visualized ASD or PFO via 2D imaging, color Doppler, or following agitated saline injection. * 4. Ascending aorta is not well visualized, but appears mildly dilated. * 5. Normal estimated right ventricular systolic pressure; 27 mmHg. * 6. No prior study available for comparison. Procedure Details * A saline contrast injection was performed to assess for cardiac shunting. * The injection was performed through an intravenous line in the right arm. * The attending nurse who injected the saline contrast was MATT CHAPPELL. * A total of 10 cc of agitated saline was given. Left Ventricle * The left ventricle is normal in size. * There is normal left ventricular wall thickness. * Ejection Fraction = 60-65%. * Left ventricular systolic function is normal. * No regional wall motion abnormalities noted. Right Ventricle * The right ventricle is normal in size and function. * The right ventricular systolic function is normal as assessed by tricuspid annular plane systolic excursion (TAPSE) (normal >1.5 cm). Atria * The left atrial size is normal. * Right atrial size is normal. * No visualized ASD or PFO via 2D imaging, color Doppler, or following agitated saline injection. Mitral Valve * The mitral valve is normal in structure and function. * There is no mitral valve stenosis. * There is trace mitral regurgitation. Tricuspid Valve * The tricuspid valve is not well visualized, but is grossly normal. * There is no tricuspid stenosis. * There is mild tricuspid regurgitation. Aortic Valve * The aortic valve is normal in structure and function. * The aortic valve is trileaflet. * No hemodynamically significant valvular aortic stenosis. * No aortic regurgitation is present. Pulmonic Valve * The pulmonary valve is inadequately visualized, but the Doppler data is adequate for interpretation. * There is no pulmonic valvular stenosis. * Trace pulmonic valvular regurgitation. Great Vessels * The aortic root is normal size. * Ascending aorta is not well visualized, but appears mildly dilated. Pericardium/Pleural * There is no pericardial effusion. Great Vessels * Normal inferior vena cava size and collapsability with sniff indicates a normal right atrial pressure of 3 mmHg MMode 2D Measurements and Calculations IVSd 1.1 cm IVSs 1.6 cm LVIDd 3.8 cm LVIDs 2.4 cm LVPWd 1.1 cm LVPWs 1.9 cm IVS/LVPW 10 FS 36.6 % EDV(Teich) 61.8 ml ESV(Teich) 20.3 ml EF(Teich) 67.2 % EDV(cubed) 54.7 ml ESV(cubed) 13.9 ml EF(cubed) 74.6 % % IVS thick 38.6 % % LVPW thick 64.3 % LV mass(C)d 139.6 grams LV mass(C)dI 87.5 grams/m\S\2 LV mass(C)s 153.3 grams LV mass(C)sI 96.2 grams/m\S\2 SV(Teich) 41.5 ml SI(Teich) 26.0 ml/m\S\2 SV(cubed) 40.8 ml SI(cubed) 25.6 ml/m\S\2 Ao root diam 3.1 cm Ao root area 7.6 cm\S\2 LA dimension 3.2 cm asc Aorta Diam 3.6 cm LA/Ao 1.0 LVOT diam 2.0 cm LVOT area 3.1 cm\S\2 LVAd ap4 29.6 cm\S\2 LVLd ap4 8.5 cm EDV(MOD-sp4) 85.6 ml LVAs ap4 15.2 cm\S\2 LVLs ap4 6.2 cm ESV(MOD-sp4) 33.0 ml EF(MOD-sp4) 61.4 % LVAd ap2 28.3 cm\S\2 LVLd ap2 8.8 cm EDV(MOD-sp2) 78.3 ml LVAs ap2 13.2 cm\S\2 LVLs ap2 6.1 cm ESV(MOD-sp2) 25.9 ml EF(MOD-sp2) 66.9 % SV(MOD-sp4) 52.6 ml SI(MOD-sp4) 33.0 ml/m\S\2 SV(MOD-sp2) 52.4 ml SI(MOD-sp2) 32.9 ml/m\S\2 Doppler Measurements and Calculations MV E max keturah 66.5 cm/sec MV A max keturah 56.3 cm/sec MV E/A 1.2 MV dec time 0.25 sec Ao V2 max 135.7 cm/sec Ao max PG 7.4 mmHg Ao max PG (full) 2.6 mmHg OSCAR(V,A) 2.5 cm\S\2 OSCAR(V,D) 2.5 cm\S\2 LV V1 max PG 4.7 mmHg LV V1 max 108.8 cm/sec TV E max keturah 58.5 cm/sec TR max keturah 247.0 cm/sec
--- NOTE | 2016-12-15 10:59 | Medical Student: [facility] ---
Med Student Progress Note Date of Service Dec 15, 2016. Subjective Pt evaluation today including: conversation w/ patient Voiding: no voiding problems Mrs. Boykin is a 71 year old female with past medical history significant for hypertension and vertigo who is being treated for diplopia. No acute events overnight. Normal sinus rhythm per tele. Patient states she is feeling better this morning. Reports diplopia slightly improved. Notes began wearing eye patch this morning which is helping. States appetite and sleep good. Denies eye pain, chest pain, palpitations, nausea, vomiting, weakness, numbness/tingling, dysphagia, aphasia, confusion, fever. Review of Systems Constitutional: No chills, No fever, No sweats Eyes: No eye pain, No worsening of vision Respiratory: No shortness of breath, No wheezing Cardiac: No chest pain, No palpitations Abdomen: No constipation, No diarrhea, No nausea, No pain, No vomiting Musculoskeletal: No calf pain, No swelling Female : No dysuria, No urinary frequency Neurologic: No numbness/tingling, No paralysis, No vertigo, No weakness Psychiatric: No anxiety Objective Vital Signs Date Time Temp Pulse Resp B/P Pulse Ox O2 Delivery O2 Flow Rate FiO2 12/15/16 07:45 36.8 50 14 137/73 95 Room Air 12/15/16 07:30 Room Air 12/15/16 04:00 95 Room Air 12/15/16 02:55 36.6 51 16 140/66 95 Room Air 12/15/16 00:00 96 Room Air 12/15/16 00:00 36.7 54 151/74 96 Room Air 12/14/16 20:09 94 Room Air 12/14/16 20:00 Room Air 12/14/16 19:01 36.8 55 17 166/90 94 Room Air 12/14/16 17:28 36.6 58 20 175/96 100 Room Air 12/14/16 16:00 Room Air 12/14/16 13:15 36.8 60 16 160/85 98 Room Air 12/14/16 12:50 55 17 167/77 98 Room Air 12/14/16 12:25 100 Room Air 12/14/16 11:47 64 19 148/76 100 Room Air 12/14/16 11:11 52 12 147/76 98 Room Air 12/14/16 11:10 100 Room Air Physical Exam General Appearance: WD/WN, no apparent distress Eyes: right eye abnormal EOM (lateral movement), right eye vision changes ( diplopia), left eye EOMI, left eye normal inspection, bilateral eyes PERRL ENT: hearing grossly normal Neck: supple, no adenopathy, no JVD, no carotid bruits Respiratory/Chest: chest non-tender, lungs clear, normal breath sounds, no respiratory distress, no accessory muscle use Cardiovascular: regular rate, rhythm, no edema, no gallop, no JVD, no murmur Abdomen: normal bowel sounds, non tender, soft Extremities: no pedal edema, no calf tenderness Neurologic/Psychiatric: no motor/sensory deficits, alert, normal mood/affect, oriented x 3, + abnormal lien searcher II-XII (CN XI) Skin: normal color, warm/dry Laboratory Results Last 24 Hours Test 12/15/16 06:11 White Blood Count 4.84 K/uL Red Blood Count 4.58 M/uL Hemoglobin 14.1 g/dL Hematocrit 41.4 % Mean Corpuscular Volume 90.4 fL Mean Corpuscular Hemoglobin 30.8 pg Mean Corpuscular Hemoglobin Concent 34.1 g/dl Platelet Count 234 K/uL Mean Platelet Volume 11.8 fL Neutrophils (%) (Auto) 48.8 % Lymphocytes (%) (Auto) 40.3 % Monocytes (%) (Auto) 7.0 % Eosinophils (%) (Auto) 2.7 % Basophils (%) (Auto) 1.0 % Neutrophils # (Auto) 2.36 K/uL Lymphocytes # (Auto) 1.95 K/uL Monocytes # (Auto) 0.34 K/uL Eosinophils # (Auto) 0.13 K/uL Basophils # (Auto) 0.05 K/uL RDW Standard Deviation 43.9 fL RDW Coefficient of Variation 13.2 % Immature Granulocyte % (Auto) 0.2 % Immature Granulocyte # (Auto) 0.01 K/uL Sodium Level 143 mmol/L Potassium Level 3.6 mmol/L Chloride Level 108 mmol/L Carbon Dioxide Level 28 mmol/L Anion Gap 7.0 mmol/L Blood Urea Nitrogen 13 mg/dl Creatinine 0.70 mg/dl Est Creatinine Clear Calc Drug Dose 59.4 ml/min Estimated GFR () 100.3 Estimated GFR (Non- 86.6 BUN/Creatinine Ratio 18.4 Random Glucose 83 mg/dl Calcium Level 9.2 mg/dl Triglycerides Level 92 mg/dl Cholesterol Level 134 mg/dl HDL Cholesterol 58 mg/dl LDL Cholesterol, Calculated 58 mg/dl VLDL Cholesterol, Calculated 18 mg/dl Cholesterol/HDL Ratio 2.3 Medications Current Inpatient Medications Medications (Trade) Dose Ordered Sig/Ayla Route Start Time Stop Time Status Last Admin Dose Admin Acetaminophen (Tylenol Tab) 650 mg Q4H PRN PO 12/14/16 11:30 01/13/17 11:29 Al Hydrox/Mg Hydrox/Simethicone (Maalox Max Susp) 15 ml Q4H PRN PO 12/14/16 11:30 01/13/17 11:29 Magnesium Hydroxide (Milk Of Magnesia Susp) 30 ml Q12H PRN PO 12/14/16 11:30 01/13/17 11:29 Ondansetron HCl (Zofran Inj) 4 mg Q6H PRN IV 12/14/16 11:30 01/13/17 11:29 Polyethylene (Miralax Powder Packet) 17 gm DAILY PRN PO 12/14/16 11:30 01/13/17 11:29 Miscellaneous Information (Pharmacist Discharge Med Rec Consult) 1 ea UD PRN N/A 12/14/16 11:30 01/13/17 11:29 Miscellaneous (Iv Fluids Completed) 1 ea PRN PRN N/A 12/14/16 12:30 12/14/17 12:29 Cholecalciferol (Vitamin D Tab) 1,000 inter.unit DAILY PO 12/15/16 09:00 01/14/17 08:59 12/15/16 08:53 1,000 INTER.UNIT Cyanocobalamin (Vitamin B-12 Tab) 1,000 mcg MoWeFr@0900 PO 12/16/16 09:00 01/15/17 08:59 Gadobutrol (Gadavist) 6 mmol UD PRN IV 12/14/16 16:15 12/18/16 16:14 Heparin Sodium (Porcine) (Heparin Sq 5000 Unit/0.5ml) 5,000 unit Q12 SQ 12/14/16 21:00 01/13/17 20:59 12/15/16 08:55 5,000 UNIT Aspirin (Ecotrin Tab) 81 mg QAM PO 12/16/16 09:00 01/15/17 08:59 Indapamide (Lozol Tab) 1.25 mg DAILY PO 12/16/16 09:00 01/15/17 08:59 Assessment and Plan Assessment and Plan: Mrs. Boykin is a 71 year old female with past medical history significant for HTN and vertigo who presented to ED this morning for diplopia. 1. Diplopia - Exam revealed third nerve palsy. 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 Most likely etiology stroke likely to be result of small vessel ischemia due to HTN. Patient also has family history of stroke and heart disease. Echo did not reveal source of emboli such as PFO, ASD , or afib. - 16.8% calculated CVD 10 year risk. Would not consider statin therapy due to LDL cholesterol at 58. - Continue aspirin 81 mg 2. Hypertension - Blood pressure stable in 140s/60s. Down from 160s/70s yesterday. Likely due to autoregulation post ischemic episode. - Restart Losol 1.25 mg daily - Continue to monitor blood pressure and electrolytes 3. Hypokalemia - Likely due to diuretic. Patient given 40 mEq potassium PO yesterday. Patient's level increased to 3.6 from 3.3 today. - Continue to follow and replete if <3.5 4. DVT prophylaxis - Platelets stable in 250s. No signs of HIT. - Continue heparin 5000 units subq q12 hours - Monitor platelets
--- NOTE | 2016-12-15 11:07 | Neurology Consultation ---
Neurology Consultation Date of Consultation: Dec 15, 2016. Attending Physician: Andrew Gore D.O. Primary Care Physician: Parvez Lopes M.D. Reason for Consultation: Double vision History of Present Illness Source: patient, spouse, hospital records The patient is a 71-year-old female with a chief complaint of double vision. She knows the symptom upon awakening yesterday morning, at around 8 AM. The symptom has been persistent. She reports horizontal diplopia that resolves with closing either eye. The diplopia worsens with looking down or to the left but improves with looking to the right. Her , who is at bedside, noted that she had some associated left facial weakness at the time of symptom onset yesterday as well. The facial weakness significantly improved by the time they were evaluated in the emergency department, however. The patient continues to complain of horizontal diplopia and has been wearing an eye patch over the right eye. She had complained of some mild associated nausea and dizziness which has resolved. Past medical history notable for hypertension. She was not taking blood thinners prior to this hospitalization. I reviewed the images and radiologist's interpretation of the brain MRI completed yesterday. I discussed a results directly with Dr. Arnett, radiology , this morning as well. There is evidence of an area of restricted diffusion to the right of the midline, posteriorly, affecting the mid brain. There is an associated area of increased FLAIR signal. No abnormal post contrast enhancement. ADC mapping was not available. In the context of this patient's history and examination, described below, the imaging findings are most suggestive of an acute or subacute ischemic infarct within the right posterior aspect of her mid brain. The finding was potentially considered artifactual, however, by radiology yesterday. MR angiography of the head and neck are unremarkable. A transthoracic echocardiogram is unremarkable and negative for cardioembolic source. An electrocardiogram reveals sinus bradycardia, no evidence of atrial fibrillation. 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 Family History Family history positive for stroke in the mother, Parkinson's disease in the father Father: pertinent history of (Parkinson's Disease) Mother: heart disease (myocardial infarction), stroke Social History Smokeless Tobacco Use: No Alcohol Use: occasionally (1 glass of wine x5 days a week) Drug Use: none Marital Status: Housing Status: lives with significant other Occupation Status: retired (Party Host) Allergies Coded Allergies: No Known Allergies (Unverified , 12/14/16) Current Inpatient Medications Current Inpatient Medications Medications (Trade) Dose Ordered Sig/Ayla Route Start Time Stop Time Status Last Admin Dose Admin Acetaminophen (Tylenol Tab) 650 mg Q4H PRN PO 12/14/16 11:30 01/13/17 11:29 Al Hydrox/Mg Hydrox/Simethicone (Maalox Max Susp) 15 ml Q4H PRN PO 12/14/16 11:30 01/13/17 11:29 Magnesium Hydroxide (Milk Of Magnesia Susp) 30 ml Q12H PRN PO 12/14/16 11:30 01/13/17 11:29 Ondansetron HCl (Zofran Inj) 4 mg Q6H PRN IV 12/14/16 11:30 01/13/17 11:29 Polyethylene (Miralax Powder Packet) 17 gm DAILY PRN PO 12/14/16 11:30 01/13/17 11:29 Miscellaneous Information (Pharmacist Discharge Med Rec Consult) 1 ea UD PRN N/A 12/14/16 11:30 01/13/17 11:29 Miscellaneous (Iv Fluids Completed) 1 ea PRN PRN N/A 12/14/16 12:30 12/14/17 12:29 Cholecalciferol (Vitamin D Tab) 1,000 inter.unit DAILY PO 12/15/16 09:00 01/14/17 08:59 12/15/16 08:53 1,000 INTER.UNIT Cyanocobalamin (Vitamin B-12 Tab) 1,000 mcg MoWeFr@0900 PO 12/16/16 09:00 01/15/17 08:59 Gadobutrol (Gadavist) 6 mmol UD PRN IV 12/14/16 16:15 12/18/16 16:14 Heparin Sodium (Porcine) (Heparin Sq 5000 Unit/0.5ml) 5,000 unit Q12 SQ 12/14/16 21:00 01/13/17 20:59 12/15/16 08:55 5,000 UNIT Aspirin (Ecotrin Tab) 81 mg QAM PO 12/16/16 09:00 01/15/17 08:59 Indapamide (Lozol Tab) 1.25 mg DAILY PO 12/16/16 09:00 01/15/17 08:59 Review of Systems The patient denies fever, chills, malaise, hearing loss, vertigo, chest pain, palpitations, coughing, wheezing, shortness of breath, abdominal pain, diarrhea , vomiting, dysuria, incontinence of urine, arthralgia, myalgia, rash, swollen glands She endorses the symptom of diplopia as per the history of present illness. She had complained of mild nausea and dizziness which have resolved. She denies headache. A full 10 point review of systems was obtained from this patient with pertinent positives and negatives described in the history of present illness and otherwise listed above. Physical Exam Vital Signs (Past 24 Hrs): Date Time Temp Pulse Resp B/P Pulse Ox O2 Delivery O2 Flow Rate FiO2 12/15/16 07:45 36.8 50 14 137/73 95 Room Air 12/15/16 07:30 Room Air 12/15/16 04:00 95 Room Air 12/15/16 02:55 36.6 51 16 140/66 95 Room Air 12/15/16 00:00 96 Room Air 12/15/16 00:00 36.7 54 151/74 96 Room Air 12/14/16 20:09 94 Room Air 12/14/16 20:00 Room Air 12/14/16 19:01 36.8 55 17 166/90 94 Room Air 12/14/16 17:28 36.6 58 20 175/96 100 Room Air 12/14/16 16:00 Room Air 12/14/16 13:15 36.8 60 16 160/85 98 Room Air 12/14/16 12:50 55 17 167/77 98 Room Air 12/14/16 12:25 100 Room Air 12/14/16 11:47 64 19 148/76 100 Room Air 12/14/16 11:11 52 12 147/76 98 Room Air 12/14/16 11:10 100 Room Air The patient is a well-developed, well-nourished, elderly female. She is lying comfortably in bed, her is at bedside. She is alert and oriented to person place and time. Attention and concentration normal. Recent and remote memory intact. She exhibits a normal spontaneous speech pattern, normal age appropriate fund of knowledge, is able to name objects and repeat phrases. Visual bell full to confrontation. The right pupil is slightly smaller than the left. Both pupils are round and react fairly well to light and accommodation. There is some impairment of ocular motility with assessment of movements of the right eye. Medial gaze with the right eye is limited which accentuates her complaint of diplopia. Lateral gaze with the right eye is intact , however and diminishes her complaint of diplopia. There is mild limitation of inferior gaze with the right eye which also results in some diplopia. There is no nystagmus. There is no ptosis. Facial sensation intact bilaterally. There is perhaps slight weakness of the left lower facial musculature manifesting as some flattening of the left nasolabial fold. Palate elevates to midline. Tongue protrudes to midline. Shoulder shrug strength and hearing intact bilaterally. Sensation to vibration, light touch, temperature, and proprioception intact for the arms and legs bilaterally. There is no dysmetria with finger to nose or heel to perez bilaterally. There is no ataxia. Deep tendon reflexes are 2+ for the arms and legs bilaterally, proximally and distally. Plantar responses downgoing bilaterally. Ophthalmoscopic examination reveals normal-appearing optic nerves and posterior elements. No papilledema, no hemorrhages. Carotid pulses normal, no bruits to auscultation. Muscular skeletal examination reveals normal strength for the arms and legs proximally and distally. Muscle tone is normal throughout. There is no atrophy. No abnormal movements observed. Gait and station normal. Laboratory Results Past 24 Hours: 12/15/16 06:11 Red Blood Count 4.58, Mean Corpuscular Volume 90.4, Mean Corpuscular Hemoglobin 30.8, Mean Corpuscular Hemoglobin Concent 34.1, Mean Platelet Volume 11.8, Neutrophils (%) (Auto) 48.8, Lymphocytes (%) (Auto) 40.3, Monocytes (%) (Auto) 7.0, Eosinophils (%) (Auto) 2.7, Basophils (%) (Auto) 1.0, Neutrophils # (Auto) 2.36, Lymphocytes # (Auto) 1.95, Monocytes # (Auto) 0.34, Eosinophils # (Auto) 0.13, Basophils # (Auto) 0.05 12/15/16 06:11 Test 12/15/16 06:11 White Blood Count 4.84 K/uL (4.8-10.8) Red Blood Count 4.58 M/uL (4.2-5.4) Hemoglobin 14.1 g/dL (12.0-16.0) Hematocrit 41.4 % (37-47) Mean Corpuscular Volume 90.4 fL (80-100) Mean Corpuscular Hemoglobin 30.8 pg (25-34) Mean Corpuscular Hemoglobin Concent 34.1 g/dl (32-36) Platelet Count 234 K/uL (130-400) Mean Platelet Volume 11.8 fL (7.4-10.4) Neutrophils (%) (Auto) 48.8 % Lymphocytes (%) (Auto) 40.3 % Monocytes (%) (Auto) 7.0 % Eosinophils (%) (Auto) 2.7 % Basophils (%) (Auto) 1.0 % Neutrophils # (Auto) 2.36 K/uL (1.4-6.5) Lymphocytes # (Auto) 1.95 K/uL (1.2-3.4) Monocytes # (Auto) 0.34 K/uL (0.11-0.59) Eosinophils # (Auto) 0.13 K/uL (0-0.5) Basophils # (Auto) 0.05 K/uL (0-0.2) RDW Standard Deviation 43.9 fL (36.4-46.3) RDW Coefficient of Variation 13.2 % (11.5-14.5) Immature Granulocyte % (Auto) 0.2 % Immature Granulocyte # (Auto) 0.01 K/uL (0.00-0.02) Anion Gap 7.0 mmol/L (3-11) Est Creatinine Clear Calc Drug Dose 59.4 ml/min Estimated GFR () 100.3 Estimated GFR (Non- 86.6 BUN/Creatinine Ratio 18.4 (10-20) Calcium Level 9.2 mg/dl (8.5-10.1) Triglycerides Level 92 mg/dl (0-150) Cholesterol Level 134 mg/dl (0-200) HDL Cholesterol 58 mg/dl LDL Cholesterol, Calculated 58 mg/dl VLDL Cholesterol, Calculated 18 mg/dl Cholesterol/HDL Ratio 2.3 Impression 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 This patient's neurological examination is consistent with a right midbrain infarct as she has a right third nerve palsy. She has subtle left facial weakness as well which would presumably be related to involvement of supranuclear seventh nerve cortical bulbar fibers. She is not dysarthric. She does not have a hemiparesis. The etiology of a stroke of this type is most likely related to small vessel thrombosis. In her case, age and hypertension are probable risk factors. Plan Aspirin 81 mg per day for stroke risk reduction going forward. I explained to the patient and her that her diplopia may gradually improve over the next few weeks. However, I'm unable to predict the extent of her improvement at this time. She will need an outpatient ophthalmological evaluation to more fully assess her ocular motility impairment and perhaps make recommendations for prisms presuming she has a residual fixed deficit. In the meantime, she should continue wearing the eye patch for comfort. She will need to follow-up with her primary care physician for ongoing monitoring of her blood pressure which was significantly elevated at presentation although much improved currently. I've no further immediate recommendations. Please contact me if I may be of further assistance.
[2016-12-15] MEDS ORDERED: ASPEC81 PO (13:54)
--- NOTE | 2016-12-15 13:55 | Discharge Instructions ---
Discharge Instructions Date of Service Dec 15, 2016. Admission Reason for Admission: Diplopia Discharge Discharge Diagnosis / Problem: stroke Discharge Goals Goal(s): Diagnostic testing, Therapeutic intervention Activity Recommendations Activity Limitations: resume your previous activity . Instructions / Follow-Up Instructions / Follow-Up Risk Factors for Stroke: You can reduce your chances of stroke by working with your medical provider to adopt a healthy lifestyle. Some specific ways to lower your chance of stroke are: * If you are a smoker, now is the time to stop smoking cigarettes * If you are diabetic, improve the control of your blood sugars * Avoid excessive amounts of alcohol * Control high blood pressure * Lose weight if you are overweight * Be sure to lead an active lifestyle * Eat a healthy diet low in salt, cholesterol and fat You should know about other risk factors for stroke that you are unable to control. These include: * Age 55 years or older * Male gender * Certain racial groups: , or / * Family History of Stroke, Mini stroke or Heart Attack * Sickle Cell Disease Follow Up: It is important for you to keep your follow up appointments with your medical provider. Current Hospital Diet Patient's current hospital diet: Vegetarian Diet Discharge Diet Recommended Diet: Regular Diet (the vegetarian diet as you've previously been doing) Pending Studies Studies pending at discharge: no Laboratory Results Hemoglobin A1c Test 12/14/16 10:10 Range/Units Estimated Average Glucose 108 mg/dl Hemoglobin A1c 5.4 4.5-5.6 % Lipid Panel Test 12/15/16 06:11 Range/Units Triglycerides Level 92 0-150 mg/dl Cholesterol Level 134 0-200 mg/dl HDL Cholesterol 58 mg/dl Cholesterol/HDL Ratio 2.3 LDL Cholesterol, Calculated 58 mg/dl Medical Emergencies . Who to Call and When: Medical Emergencies: Call 911 immediately if you experience any of the following warning signs and symptoms of Stroke: * Sudden numbness or weakness of the face, arm or leg, especially on one side of the body * Sudden confusion, trouble speaking or understanding * Sudden trouble seeing in one or both eyes * Sudden trouble walking, dizziness, loss of balance or coordination * Sudden severe headache with no cause Do not delay calling 911 if you experience any warning signs or symptoms of a stroke. Delay in seeking medical attention may affect what treatments can be given to you. . Non-Emergent Contact Non-Emergency issues call your: Primary Care Provider . . "Provider Documentation" section prepared by Andrew Gore. Stroke Core Measures Reason no t-PA for Stroke: Treatment not indicated Reason no antithrom by day 2: Treatment provided - N/A Reason no antithrom at D/C: Treatment provided - N/A Reason no statin at D/C: Treatment not indicated Reason no anticoag w/a fib: Treatment not indicated VTE Core Measure Inpt VTE Proph given/why not?: Unfractionated heparin SQ
--- NOTE | 2016-12-15 14:52 | Pharmacy Progress Note ---
Pharmacist Stroke Counseling Date of Service Dec 15, 2016. Scope Pharmacy has been consulted to provide medication discharge counseling for this patient admitted with ischemic stroke as per the Pharmacist Discharge Counseling for Stroke Patients Protocol. Medications on Discharge New Medications: Aspirin (Aspirin EC Low Dose) 81 Mg Ectab 81 MG PO QAM, #30 Continued Medications: Cholecalciferol (Vitamin D3) 1,000 Unit Tab 1 TAB PO DAILY for 90 Days, #90 TAB 3 Refills Cyanocobalamin (Vitamin B-12) 1,000 Mcg Tab 1000 MCG PO 3XWK, TAB Indapamide (Lozol) 1.25 Mg Tab 1.25 MG PO DAILY, TAB Alexa's main symptom was diplopia, which she reports is much better. Patient had questions about potassium and indapamide which were answered. She noted that her cholesterol is low, so need for statin will be reevaluated in a month. Action The above medications, specifically ones for stroke treatment/prophylaxis, have been reviewed in detail with the patient prior to discharge. This includes indication, common adverse reactions, drug interactions, and medication administration. Medication counseling has been employed using the teach-back method to ensure understanding. Outcome The patient has demonstrated understanding of the medications. Please note, they are aware that the pharmacist will call them within 72 hours post-discharge to confirm that the appropriate medications are being taken and answer any further medication related questions the patient might have at that time. Contact information Individual to be contacted: Alexa Caceresvarinder Phone number: Best time to call: anytime after 8am Thank you for allowing pharmacy to be involved in the care of this patient. Please call [phone] or [phone] with any additional questions
--- NOTE | 2016-12-15 15:23 | Discharge Summary ---
Discharge Summary Date of Service Dec 15, 2016. (Isabelle Joy MD) Discharge Summary Admission Date: Dec 14, 2016 at 12:40 Discharge Date: Dec 15, 2016 Discharge Disposition: Home Principal Diagnosis: CVA Consultations: Dr Armendariz (Isabelle Joy MD) Procedures: echo: Interpretation Summary * Name: SUNIL RAYMUNDO Study Date: 12/15/2016 06:16 AM BP: 137/73 mmHg * Patient Location: [id number]\\S\\E201\\S\\1 HR: 50 * : 1945 (M/d/yyyy) Gender: Female Height: 60 in * Age: 71 yrs Ethnicity: CA Weight: 138 lb * Ordering Physician: Isabelle Joy * Referring Physician: Self, Referred * Performed By: Radha Og RDCS * * Reason For Study: POSSIBLE TIA VS STROKE * BSA: 1.6 m2 * History: POSSIBLE TIA VS STROKE * -- Conclusions -- * 1. Normal left ventricular size and systolic function. EF 60-65%. No regional wall motion abnormalities. No left ventricular hypertrophy. Type 2 diastolic dysfunction. * 2. No significant valvular abnormalities. * 3. No visualized ASD or PFO via 2D imaging, color Doppler, or following agitated saline injection. * 4. Ascending aorta is not well visualized, but appears mildly dilated. * 5. Normal estimated right ventricular systolic pressure; 27 mmHg. * 6. No prior study available for comparison. Procedure Details * A saline contrast injection was performed to assess for cardiac shunting. * The injection was performed through an intravenous line in the right arm. * The attending nurse who injected the saline contrast was MATT CHAPPELL. * A total of 10 cc of agitated saline was given. Left Ventricle * The left ventricle is normal in size. * There is normal left ventricular wall thickness. * Ejection Fraction = 60-65%. * Left ventricular systolic function is normal. * No regional wall motion abnormalities noted. Right Ventricle * The right ventricle is normal in size and function. * The right ventricular systolic function is normal as assessed by tricuspid annular plane systolic excursion (TAPSE) (normal >1.5 cm). Atria * The left atrial size is normal. * Right atrial size is normal. * No visualized ASD or PFO via 2D imaging, color Doppler, or following agitated saline injection. Mitral Valve * The mitral valve is normal in structure and function. * There is no mitral valve stenosis. * There is trace mitral regurgitation. Tricuspid Valve * The tricuspid valve is not well visualized, but is grossly normal. * There is no tricuspid stenosis. * There is mild tricuspid regurgitation. Aortic Valve * The aortic valve is normal in structure and function. * The aortic valve is trileaflet. * No hemodynamically significant valvular aortic stenosis. * No aortic regurgitation is present. Pulmonic Valve * The pulmonary valve is inadequately visualized, but the Doppler data is adequate for interpretation. * There is no pulmonic valvular stenosis. * Trace pulmonic valvular regurgitation. Great Vessels * The aortic root is normal size. * Ascending aorta is not well visualized, but appears mildly dilated. Pericardium/Pleural * There is no pericardial effusion. Great Vessels * Normal inferior vena cava size and collapsability with sniff indicates a normal right atrial pressure of 3 mmHg (Andrew Gore, D.O.) Medication Reconciliation New Medications: Aspirin (Aspirin EC Low Dose) 81 Mg Ectab 81 MG PO QAM, #30 Continued Medications: Cholecalciferol (Vitamin D3) 1,000 Unit Tab 1 TAB PO DAILY for 90 Days, #90 TAB 3 Refills Cyanocobalamin (Vitamin B-12) 1,000 Mcg Tab 1000 MCG PO 3XWK, TAB Indapamide (Lozol) 1.25 Mg Tab 1.25 MG PO DAILY, TAB Discharge Exam Patient states she feels much better compared to yesterday but has ongoing double vision we discussed the patient's condition and discharge and patient was agreeable to d/c home Review of Systems: Constitutional: No fever Eyes: + diplopia, No worsening of vision ENT: No hearing loss Respiratory: No cough, No dyspnea at rest, No dyspnea on exertion, No shortness of breath, No sputum, No wheezing Cardiovascular: No chest pain Abdomen: No constipation, No diarrhea, No nausea, No pain, No vomiting Musculoskeletal: No joint pain, No muscle pain Genitourinary - Female: No dysuria, No hematuria Neurologic: No balance problems, No numbness/tingling, No weakness Endocrine: No fatigue Integumentary: No rash Physical Exam: General Appearance: no apparent distress Eyes: PERRL, + pertinent finding (right eye is unable to complete full EOM) ENT: normal ENT inspection Neck: supple Respiratory/Chest: lungs clear, normal breath sounds, no respiratory distress, no accessory muscle use Cardiovascular: regular rate, rhythm, no murmur Abdomen / GI: normal bowel sounds, non tender, soft Neurologic/Psychiatric: alert, normal mood/affect, oriented x 3 Skin: normal color, warm/dry, no rash Lymphatic: no adenopathy (Isabelle Joy MD) Hospital Course This is a 71 yo f that presented to the hospital with diplopia and exam consisted of impairment of EOM in the right eye. the thought was that the patient was potentially suffering from right sided CN III or palsy however because facial drooping was a noted symptom by her there was concern for TIA vs stroke. The was only minimal improvement overnight so a neurology consult was called and after review of he patient clinical symptoms and MRI she did in fact suffer from a stroke in the right midbrain. A FLP was done and because her LDL was 58 a statin was not initiated because the increased risk of intracranial bleed. She was however started on ASA 81 mg. Appropriate follow up apts were made CVA in right midbrain - Echo * 1. Normal left ventricular size and systolic function. EF 60-65%. No regional wall motion abnormalities. No left ventricular hypertrophy. Type 2 diastolic dysfunction. * 2. No significant valvular abnormalities. * 3. No visualized ASD or PFO via 2D imaging, color Doppler, or following agitated saline injection. * 4. Ascending aorta is not well visualized, but appears mildly dilated. * 5. Normal estimated right ventricular systolic pressure; 27 mmHg. * 6. No prior study available for comparison. - Lipid panel as noted above - HBA1C 5.4 - ASA 81 mg - Statin deferred HTN - cont Indapamide - augment based on outpt bp Hypokalemia - recommend a recheck of K DVT Prophylaxis - heparin Total Time Spent: Less than 30 minutes This includes examination of the patient, discharge planning, medication reconciliation, and communication with other providers. (Isabelle Joy MD) Resident Physician Supervision Note: I interviewed and examined the patient. Discussed with Dr. Joy and agree with findings and plan as documented in the note. Any exceptions or clarifications are listed here: None Documented By: Andrew Gore feeling better, eyes moving more in concordance, less double vision neurology input greatly appreciated - rereading MRI c/w small vessel stroke in the right area to cause this risk factors discussed, "raw" lipid values low enough that with age/lipids, statin may increase risk of ICH more than benefit in plaque stabilization EOMI, but R eye lags behind L some in gaze, no other focal deficits diplopia due to small stroke -secondary risk reduction - asa, BP control, as above statin w relative contraindication as risks appear to outweigh benefits -stable for home Total Time Spent: Less than 30 minutes (Andrew Gore D.Álvaro.) Discharge Instructions Please refer to the electronic Patient Visit Report (Discharge Instructions) for additional information. (Isabelle Joy MD) Additional Copies To Parvez Lopes M.D.
[2016-12-16] MEDS ORDERED: ASPIRIN 81 MG ECTAB PO SCH (09:00)
[2016-12-16] MEDS ORDERED: INDAPAMIDE 1.25 MG TAB PO SCH (09:00)
[2016-12-16] MEDS ORDERED: CYANOCOBALAMIN 500 MCG TAB (VIT B-12) PO SCH (09:00)
--- NOTE | 2016-12-17 15:17 | Pharmacy Progress Note ---
Pharmacist Post D/C Phone Note Date of phone call: Dec 17, 2016. Individual with whom pharmacist spoke to: Alexa Boykin The following questions were reviewed during the phone call with responses listed below each: Can you tell me the medications that you are currently taking as well as when and how you take each medication? Medications Dose Route/Sig Max Daily Dose Days Date Category Aspirin EC Low Dose (Aspirin) 81 Mg Ectab 81 Mg PO QAM 12/15/16 Rx Vitamin D3 (Cholecalciferol) 1,000 Unit Tab 1 Tab PO DAILY 90 12/14/16 Reported Vitamin B-12 (Cyanocobalamin) 1,000 Mcg Tab 1,000 Mcg PO 3XWK 12/14/16 Reported Lozol (Indapamide) 1.25 Mg Tab 1.25 Mg PO DAILY 12/14/16 Reported When have you missed any doses of your medications? - denies missed doses What side effects are you having from your medications? - denies side effects What questions do you have about your medications? - denies questions What problems are you having obtaining your medications? - Patient denies problems and states that her obtained Aspirin for her. When is your next appointment with your primary care doctor? - 12/22/[address] Lopes's office Additional comments: - The patient reports a red pruritic rash due to adhesive applied while she was in the hospital. She reports that she already called the hospital earlier today to ask what she could use to treat the rash and was instructed to use hydrocortisone cream. I agreed that this would be a good option. I also suggested that she take a dose of Benadryl if pruritus continues. I advised her that Benadryl can cause sedation. She has taken medication before and is aware of effects. Phone call length: 10 minutes As per the Pharmacist Discharge Counseling for Stroke Patients Protocol, this phone call has been completed within 72 hours of discharge. Thank you for allowing us to be involved in the care of this patient.
== END 2016-12-15 15:00 | disposition home or self-care (01) | DRG 66 ==
LOC: ENRESERVTM → ENRESERVDT → C.EDB 09:50 → C.2E 12:40
PROVIDERS: ADMIT Family Medicine; ATTEND Family Medicine
DX: I63.9 Cerebral infarction, unspecified (principal); H53.2 Diplopia; I10 Essential (primary) hypertension; E87.6 Hypokalemia; R29.810 Facial weakness; H49.20 Sixth [abducent] nerve palsy, unspecified eye; Z82.3 Family history of stroke

== ENCOUNTER → 2016-12-22 | Outpatient (CLI) | payer BC ==
[~2016-12-22] MED LIST: ASPEC81 PO; CHOL1000 PO; CYAN10005 PO; INDA1TAB3 PO
[2016-12-22 15:17] LABS: LYME DISEASE AB IGG NEG (NEG); LYME DISEASE AB IGM NEG (NEG)
[2016-12-24 15:35] LABS: EHRLICHIA CHAFF IGG AB <1:64 (<1:64); EHRLICHIA CHAFF IGM AB <1:20 (<1:20)
== END | disposition home or self-care (01) ==
LOC: C.LAB1850 11:52
PROVIDERS: ATTEND Physician Assistant
DX: Z11.59 Encounter for screening for other viral diseases (principal); H53.2 Diplopia

== ENCOUNTER → 2017-05-25 | Outpatient (CLI) | payer BC ==
[2017-05-25 09:56] LABS: BASO % 1.6 %; BASO ABS # 0.07 K/uL (0-0.2); BLOOD UREA NITROGEN 11 mg/dl (7-18); BUN/CREATININE RATIO 14.5 (10-20); CALCIUM 10.2 mg/dl (8.5-10.1); CARBON DIOXIDE 33 mmol/L (21-32); CHLORIDE 104 mmol/L (98-107); CHOLESTEROL 152 mg/dl (0-200); COMPLETE YES; CREATININE 0.75 mg/dl (0.60-1.20); EOS % 3.8 %; GLUCOSE 96 mg/dl (70-99); HEMATOCRIT 42.7 % (37-47); IG% 0.2 %; LYMPH % 41.4 %; LYMPH ABS # 1.83 K/uL (1.2-3.4); MEAN CELL VOLUME 90.1 fL (80-100); MEAN CORPUSCULAR HEMOGLOBIN 31.4 pg (25-34); MEAN CORPUSCULAR HGB CONC 34.9 g/dl (32-36); MEAN PLATELET VOLUME 12.3 fL (7.4-10.4); MONO % 6.8 %; NEUT % 46.2 %; PLATELET COUNT 244 K/uL (130-400); POTASSIUM 3.7 mmol/L (3.5-5.1); RED BLOOD COUNT 4.74 M/uL (4.2-5.4); SODIUM 140 mmol/L (136-145); WHITE BLOOD COUNT 4.42 K/uL (4.8-10.8)
[2017-05-25 10:00] LABS: CHOLESTEROL/HDL RATIO 2.1; HDL CHOLESTEROL 71 mg/dl; LDL CHOLESTEROL CALCULATED 62 mg/dl; TRIGLYCERIDES 95 mg/dl (0-150); VERY LOW DENSITY LIPOPROT CALC 19 mg/dl
[2017-05-25 10:08] LABS: ESTIMATED AVERAGE GLUCOSE 105 mg/dl; HA1C FLAG Normal (Normal)
--- NOTE | 2017-06-02 12:49 | CODING QUERY MEDICAL NECESSITY ---
CQSUPPORTING DIAGNOSIS NEEDED A supporting diagnosis is required for the test/procedure performed on this patient in order for us to be reimbursed by the patient's insurance. Please provide a supporting diagnosis for the following test/procedure listed below next to the test name along with your signature. *If there is no additional diagnosis for this patient that would support the following test/procedure please document that below next to the test/procedure. Test(s)/Procedure(s) that require a supporting diagnosis: DOS 05/25/17 GLYCATED HEMOGLOBIN TEST Provider Signature: Date: Thank you Savanna Tripp Health Information Management Once completed, please kindly fax back to [phone] For questions please call [phone]
== END | disposition home or self-care (01) ==
LOC: C.LAB1850 07:53
PROVIDERS: ATTEND Internal Medicine
DX: I10 Essential (primary) hypertension (principal); E74.39 Other disorders of intestinal carbohydrate absorption; I63.9 Cerebral infarction, unspecified

== ENCOUNTER → 2017-06-22 | Outpatient (CLI) | payer BC ==
[2017-06-22 17:37] LABS: BLOOD UREA NITROGEN 14 mg/dl (7-18); BUN/CREATININE RATIO 19.3 (10-20); CALCIUM 10.1 mg/dl (8.5-10.1); CARBON DIOXIDE 30 mmol/L (21-32); CHLORIDE 103 mmol/L (98-107); GLUCOSE 101 mg/dl (70-99); POTASSIUM 3.5 mmol/L (3.5-5.1); SODIUM 140 mmol/L (136-145)
== END | disposition home or self-care (01) ==
LOC: C.LAB1850 15:13
PROVIDERS: ATTEND Internal Medicine
DX: I10 Essential (primary) hypertension (principal)

== ENCOUNTER → 2017-10-15 | Outpatient (CLI) | payer BC | END | disposition home or self-care (01) | LOC: C.PATHSPEC 13:13 | PROVIDERS: ATTEND Physician Assistant | DX: C44.311 Basal cell carcinoma of skin of nose (principal); L98.499 Non-pressure chronic ulcer of skin of other sites with unspecified severity; C44.519 Basal cell carcinoma of skin of other part of trunk ==

== ENCOUNTER → 2018-01-06 | Outpatient (CLI) | payer BC ==
[~2018-01-06] MED LIST changes: -ASPEC81 PO; +ASPI-320 PO
== END | disposition home or self-care (01) ==
LOC: C.MAMM 08:49
PROVIDERS: ATTEND Internal Medicine
DX: M85.80 Other specified disorders of bone density and structure, unspecified site (principal)

== ENCOUNTER → 2018-04-27 | Day surgery (SDC) | payer BC ==
[2018-04-21 10:38] VITALS: Ht 151.1 cm; Wt 59.1 kg
[~2018-04-27] VITALS: Ht 151.1 cm; Wt 59.1 kg
[~2018-04-27] MED LIST changes: +500ML BSS 0.3ML EPI 1:1000PF IRRIG ONE; +ACETAMINOPHEN 325 MG TAB PO PRN; +AMVISC PLUS 0.8ML SYRINGE INT OCU ONE; +ATROPINE SULFATE 0.1 MG/ML 5ML SYR IV PRN; +BSS FLUSH ONE; -CHOL1000 PO; +CHOL1TAB79 PO; +DILT-113 PO; +ENDOCOAT 0.85ML SYRINGE INT OCU ONE; +EpHEDrine SULFATE INJ 50 MG/ML AMP IV PRN; +EpINEphrine INJ 1MG/ML AMP 1 MG/ML AMP ONE; +FLAXPOW2 PO; +LACTATED RINGER'S 1000ML 500 ML IV SCH; +LIDOCAINE 4% OP SOLN DROP CHARGE ONE; +LIDOCAINE 4% OP SOLN DROP CHARGE OPR SCH; +LIDOCAINE HCL 1% MPF 2 ML VIAL ONE; +MIDAZOLAM HCL 1 MG/ML 2ML VIAL ONE; +MIX: 4ML BSS 1ML EPI 1:1000 PF TOP ONE; +MOXIFLOXACIN OPH SOLN PER DROP CHARGE ONE; +POVIDONE-IODINE OP SOLN 30 ML BTL ONE; +PROPARACAINE 0.5% OP SOLN PER DROP CHARGE OPR SCH; +TOBRAMYCIN/DEXAMETHASONE OPH OINT PER APPLN CHARGE ONE; +TUMERIC ROOT PO
[2018-04-27] MEDS: PHENYLEPHRINE HCL 2.5% OP SOLN PER DROP CHARGE OPR SCH ×3 (11:52→12:10)
[2018-04-27] MEDS: TROPICAMIDE 1% OP SOLN PER DROP CHARGE OPR SCH ×3 (11:53→12:11)
[2018-04-27] MEDS: CYCLOPENTOLATE HCL 1% OP SOLN PER DROP CHARGE OPR SCH ×3 (11:54→12:12)
[2018-04-27] MEDS: MOXIFLOXACIN OPH SOLN PER DROP CHARGE OPR SCH ×3 (11:55→12:13)
--- NOTE | 2018-04-27 12:23 | History & Physical Bridge - SC ---
H&P Re-Evaluation Bridge Note: I have examined the patient, reviewed the History & Physical and in the interval since the performance of the History & Physical I have noted the following changes of clinical significance: No changes noted
--- NOTE | 2018-04-27 13:25 | [facility] Operative Report ---
Operative Report Date of Service Apr 27, 2018. Operative Report DATE OF OPERATION: 04/27/18 PREOPERATIVE DIAGNOSIS: Senile nuclear cataract, right eye POSTOPERATIVE DIAGNOSIS: Senile nuclear cataract, right eye PROCEDURE PERFORMED: Phacoemulsification with intraocular lens implantation, right eye SURGEON: Dr. David Ireland ANESTHESIA: Topical with 1% intracameral lidocaine and monitored anesthesia care COMPLICATIONS: None DESCRIPTION OF PROCEDURE: After positively identifying the patient both verbally and by wristband in the preoperative area, the right eye was marked as the operative eye. The patient was then brought back to the operating room by the anesthesia and nursing staff where they were given a drop of Lidocaine and betadine into the operative eye. They were then sterilely prepped and draped in the standard fashion typical for ophthalmic surgery. Steri-strips were placed along the upper eyelids to keep the lashes back, and a lid speculum was placed into the operative eye. At this point, a documented time out was performed with members of the ophthalmology, nursing, and anesthesia staffs all agreeing upon the correct patient, correct location for surgery, correct procedure, and correct type and power of intraocular lens to be implanted. The microscope was then swung into position. First, a paracentesis wound was made using a sideport blade. Then, in sequence, 1% preservative-free lidocaine followed by Endocoat viscoelastic was injected into the anterior chamber. Next , the main incision was made with a keratome blade in triplanar fashion. A sharp cystotome was introduced into the eye and used to create a tear in the anterior capsule, which was directed into a continuous curvilinear capsulorrhexis using Utrata forceps. Hydrodissection was then performed with BSS on a flat-tip cannula. Next, the phacoemulsification handpiece was introduced into the eye and used to remove the nucleus in a [id number] fashion. This was done without complication and then the irrigation-aspiration handpiece was introduced into the eye and used to remove all remaining cortical and epinuclear material. Amvisc was then injected into the anterior chamber as well as into the capsular bag and using the lens injector system, an MX60 15.5 D lens, serial number [id number], and expiration date 08/2020 was injected into the capsular bag and rotated into the correct position. Next, the irrigation- aspiration handpiece was used to remove all remaining Amvisc. BSS was used to hydrate the main wound, and then BSS was injected into the paracentesis site to reach physiologic pressure and then the main wound was checked and found to be watertight. The patient was given drops of Vigamox and Tobradex ointment into the operative eye, and then the surrounding area was cleaned and dried. A clear plastic shield was placed over the eye and the patient was then sat up and taken from the operating room by the anesthesia staff having tolerated the procedure well and suffering no complications. DISPOSITION: The patient was returned to the recovery room in stable condition. I attest to the content of the Intraoperative Record and any orders documented therein. Any exceptions are noted below.
--- NOTE | 2018-04-27 13:25 | [facility] Post Operative Brief Note ---
Immediate Operative Summary Operative Date Apr 27, 2018. Pre-Operative Diagnosis Cataract right eye Post-Operative Diagnosis Cataract right eye Procedure(s) Performed Right Cataract Phacoemulsification With Intraocular Lens Implant Surgeon Dr. David Ireland Horseback Excavator Surgeon(s) None Estimated Blood Loss 0ml Findings Consistent with Post-Op Diagnosis Specimens None per surgeon Anesthesia Type MAC Complication(s) none Disposition Accompanied Pt To Recover: no Disposition:
--- NOTE | 2018-04-27 13:26 | Discharge Instructions-SurgCtr ---
Discharge Instructions Date of Service Apr 27, 2018. Visit Reason for Visit: Cataract Right Eye Discharge Discharge Diagnosis / Problem: right cataract Discharge Goals Goal(s): Decrease discomfort, Improve function Activity Recommendations Activity Limitations: as noted below Anesthesia . Post Anesthesia Instructions: If you have had General Anesthesia or IV Sedation: * Do not drive today. * Resume driving when surgeon permits. * Do not make important decisions or sign legal documents today. * Call surgeon for: 1. Temperature elevations greater than 101 degrees F. 2. Uncontrollable pain. 3. Excessive bleeding. 4. Persistent nausea and vomiting. 5. Medication intolerance (nausea, vomiting or rash). * For nausea and vomiting use only clear liquids such as: tea, soda, bouillon until nausea subsides, then gradually increase diet as tolerated. * If you have any concerns or questions, call your surgeon's office. If physician is unavailable and it is an emergency, call 911 or go to the nearest emergency room. . Instructions / Follow-Up Instructions / Follow-Up ACTIVITY RECOMMENDATIONS: * Light activities. * You may walk outside, read, watch television. * You may notice redness on the white part of the eye and some blurry vision - this is normal. MEDICATIONS: Resume previous medications unless instructed otherwise by your surgeon. Start all eye drops at 3:30 pm today: * Eye drops (today): Prednisone - one drop in operative eye every 2 hours while awake Ofloxacin - one drop in operative eye every 2 hours while awake Prolensa - one drop in operative eye daily SPECIAL CARE INSTRUCTIONS: * Tape plastic shield over eye to sleep at night. Call your doctor at with any concerns or problems. FOLLOW UP VISIT: Follow-up with Dr Ireland at [facility] as scheduled. Diet Recommendations Home Diet: no limitations Procedures Procedures Performed: Right Cataract Phacoemulsification With Intraocular Lens Implant Pending Studies Studies pending at discharge: no Medical Emergencies . Who to Call and When: Medical Emergencies: If at any time you feel your situation is an emergency, please call 911 immediately. . Non-Emergent Contact Non-Emergency issues call your: Surgeon . . "Provider Documentation" section prepared by David Ireland. .
[2018-04-27 13:30] VITALS: TEMP 36.1
[2018-04-27 13:46] VITALS: BP 151/72; PULSE 48; O2SAT 99
--- NOTE | 2018-04-27 13:57 | Anesthesia Progress Nt - [facility] ---
Anesthesia Post Op Note Date & Time Apr 27, 2018 at 13:57 Vital Signs Pain Intensity: 0 Vital Signs Past 12 Hours Date Time Temp Pulse Resp B/P (MAP) Pulse Ox O2 Delivery O2 Flow Rate FiO2 04/27/18 13:46 48 16 151/72 (98) 99 Room Air 04/27/18 13:30 36.1 51 12 146/82 (103) 100 Room Air 04/27/18 11:34 36.5 58 18 164/79 (107) 99 Room Air Notes Mental Status: alert / awake / arousable, participated in evaluation Pt Amnestic to Procedure: Yes Nausea / Vomiting: adequately controlled Pain: adequately controlled Airway Patency, RR, SpO2: stable & adequate BP & HR: stable & adequate Hydration State: stable & adequate Anesthetic Complications: no major complications apparent
== END | disposition home or self-care (01) ==
LOC: X.SURG 11:20
PROVIDERS: ATTEND Ophthalmology
DX: H25.11 Age-related nuclear cataract, right eye (principal); I10 Essential (primary) hypertension; Z86.73 Personal history of transient ischemic attack (TIA), and cerebral infarction without residual deficits